=== PATIENT | female | born 1930 | race Caucasian/White ===

== ENCOUNTER 2016-11-17 14:05 | Emergency (ER) | payer MEDICARE, BC ==
--- NOTE | 2016-11-17 15:10 | ERNOTE ---
Lower Extremity HPI - Narrative Date of Service: 11/17/16 - General Lower Extremities Pain: other: right - calf Time Seen by Provider: 11/17/16 14:48 Source: patient Exam Limitations: no limitations - Immun/Allergies/Home Medications Immunizations: IMMUNIZATION HX History of Influenza Vaccine Yes Hx Pneumococcal Vaccination Yes Allergies/Adverse Reactions: Allergies Allergy/AdvReac Type Severity Reaction Status Date / Time Sulfa (Sulfonamide Allergy Verified 11/17/16 14:19 Antibiotics) Home Medications: HOME MEDICATIONS Ca/D3/Mag Ox/Zinc/Commercial Loan Specialist/Yohan/Bor [Calcium 600-D3 Plus Caplet] 1 each PO DAILY 09/24 [Last Taken 06/02/16 08:00] Cholecalciferol (Vitamin D3) [Vitamin D3] 2,000 unit PO DAILY 12/21/13 [Last Taken 06/02/16 08:00] Citalopram Hydrobromide [Citalopram HBr] 40 mg PO DAILY 12/21/13 [Last Taken 08:00] Ferrous Sulfate [Iron] 325 mg PO DAILY 12/21/13 [Last Taken 06/02/16 08:00] clonazePAM [Klonopin] 1 mg PO HS 12/21/13 [Last Taken 06/02/16 21:00] Multivitamin [One Daily Essential] 1 each PO DAILY 06/02/16 [Last Taken Unknown] Ropinirole HCl [Requip] 2 mg PO DAILY 06/02/16 [Last Taken 06/01/16 19:00] Acetaminophen [Tylenol] 650 mg PO QID PRN #0 tablet 06/06/16 [Last Taken Unknown ] Cholestyramine/Aspartame [Questran Light Packet] 4 gm PO QID #120 packet [Last Taken Unknown] Psyllium Husk (with Sugar) [Metamucil] 1 each PO QID #120 packet 06/06/16 [Last Taken Unknown] Warfarin Sodium [Coumadin] 3 mg PO DAILY@1700 #30 tablet 06/06/16 [Last Taken Unknown] Amoxicillin Trihydrate [Amoxil] 500 mg PO Q12H 11/17/16 [Last Taken Unknown] Carvedilol [Coreg] 3.125 mg PO DAILY 11/17/16 [Last Taken Unknown] Enalapril Maleate [Vasotec] 2.5 mg PO DAILY 11/17/16 [Last Taken Unknown] Furosemide [Lasix] 20 mg PO DAILY 11/17/16 [Last Taken Unknown] Oxybutynin Chloride [Ditropan Xl] 5 mg PO DAILY 11/17/16 [Last Taken Unknown] - History of Present Illness Narrative: complaining of pain and swelling in the right calf for the last week. Denies any injury, denies any discomfort with exertion. Has AF and is on warfarin. No rash. Wears ERICK hose daily. No symptoms on the left. No SOB or cough. Date (Duration): 11/10/16 Occurred: last week Method of Injury: Reports: no apparent injury Loss of Consciousness: Reports: no loss of consciousness Other Injuries: Reports: none Prior Treament: Denies: recently seen, currently on antibiotics Review of Systems - Review of Systems Constitutional: Present: no symptoms reported. Absent: fever, chills, diaphoresis, weakness Respiratory: Absent: shortness of breath, cough, wheezing Cardiology: Present: other - chronic AF. Absent: chest pain, palpitations Gastrointestinal/Abdominal: Absent: nausea, vomiting Musculoskeletal: Present: back pain - over left SI region Neurological: Absent: anxiety, weakness Psych: Present: no symptoms reported - Patient's Past Medical History Patient History - Medical: Depression, Other Patient History - Cardiac/Respiratory: Atrial Fibrillation Patient History - Cancer: No Hx of Cancer Patient History - Surgical Procedures: Appendectomy, Hysterectomy, Other Patient History - Other: None - Family History Mother Family History - Medical: , No pertinent hx Family History - Cardiac/Respiratory: No pertinent hx Father Family History - Medical: , No pertinent hx Family History - Cardiac/Respiratory: No pertinent hx - Social History Living Situations: home Psych History: Hx of Anxiety - Immunizations Hx Pneumococcal Vaccination: Yes History of Influenza Vaccine: Yes Physical Exam - Physical Exam General Appearance: Present: wd/wn, alert, no apparent distress Neck: Present: normal inspection Respiratory: Present: no respiratory distress, normal breath sounds, lungs clear Cardiovascular/Chest: Present: no murmur, normal peripheral pulses, irregularly irregular Back Exam: Present: decreased range of motion, other - tender over L SI. Myelogelosis. No midline tenderness. Extremity Exam: Present: extremity edema - very minimal, symmetrical, other - mild tenderness right popliteal fossa, no bulge or mass appreciated. Absent: calf tenderness, joint redness, joint swelling ED Progress - Results and Orders Patient's Lab Results:: I have reviewed the patient's lab results. - Vital Signs Patient's Vital Signs:: I have reviewed the patient's vital signs. Vital Signs: Vital Signs 11/17/16 14:15 Temperature 36.8 C Pulse Rate 85 Respiratory 12 Rate Blood Pressure 126/74 O2 Sat by Pulse 98 Oximetry - CT/Ultrasound CT/Ultrasound Narrative: US negative for DVT. Lechuga's cyst. Mass ? muscular tumor or hematoma. - Progress/Reassessment Chief Complaint: Lower Extremity Pain/ Injury Plan - Plan Plan: Home. Skip coumadin today then resume at the regular dosage. Get your INR checked in [address] Pompa regarding right knee US and need for an MRI to rule out a tumor. Keep using your compression stockings. Departure Clinical Impression: Edema of right lower extremity - Departure Disposition: Home self-care Condition: Good Instructions: Edema, [id number] Additional Instructions: Skip coumadin today then resume at the regular dosage. Get your INR checked in [address] Pompa regarding right knee US and need for an MRI to rule out a tumor. Keep using your compression stockings. Referrals: Amarjit Lorenzo MD [Primary Care Provider] -
[2016-11-17 15:19] LABS: Hematocrit 37.5 % (37.0-47.0); Hemoglobin 12.3 gm/dL (12.5-16.0); Mean Cell Volume 92.8 fl (78-100); Mean Corpuscular Hemoglobin 30.4 pg (27-31); Mean Corpuscular Hgb Conc 32.8 g/dl (32-36); Mean Platelet Volume 9.4 fl (6.0-9.5); Neutrophil # 3.7 K/mm3 (1.3-6.0); Platelet Count 146 K/mm3 (150-450); Red Blood Count 4.04 M/mm3 (4.2-5.4); Red Cell Distribution Width 13.8 % (11.5-14.0); White Blood Count 5.7 K/mm3 (4.0-10.5)
[2016-11-17 15:30] LABS: Prothrombin Time (Patient) 35.8 Seconds (9.4-11.4)
[2016-11-17 15:32] LABS: Albumin * 3.4 gm/dl (3.4-5.0); Anion Gap 12.3 mmol/L (6.8-13.8); BUN/Creatinine Ratio 18.3 (9.0-21.6); Ca. Corrected For Albumin 8.9 mg/dL (8.4-10.2); Calcium * 8.7 mg/dL (7.9-10.9); Potassium 4.3 mmol/L (3.4-4.6); Total Protein 6.9 gm/dL (6.2-8.2)
[2016-11-17 15:46] LABS: INR 3.44 INR (0.90-1.10)
[2016-11-17 17:50] VITALS: BP 132/74
== END 2016-11-17 16:52 | disposition home or self-care (01) ==
LOC: ER 14:05
DX: R60.0 Localized edema (principal); I48.91 Unspecified atrial fibrillation; Z79.01 Long term (current) use of anticoagulants; F41.9 Anxiety disorder, unspecified

== ENCOUNTER 2017-10-24 15:18 | Emergency (ER) | payer MEDICARE, BC ==
--- NOTE | 2017-10-24 15:42 | ERNOTE ---
Medical Problem HPI - Narrative Date of Service: 10/24/17 - General Chief Complaint: Fall Time Seen by Provider: 10/24/17 15:30 Source: patient Exam Limitations: no limitations - Immun/Allergies/Home Medications Immunizations: IMMUNIZATION HX History of Influenza Vaccine Yes Hx Pneumococcal Vaccination Yes Allergies/Adverse Reactions: Allergies Sulfa (Sulfonamide Antibiotics) Allergy (Verified 10/24/17 15:27) Home Medications: HOME MEDICATIONS Ca/D3/Mag Ox/Zinc/Metallurgical Tester/Yohan/Bor [Calcium 600-D3 Plus Caplet] 1 each PO DAILY 09/24 [Last Taken 06/02/16 08:00] Cholecalciferol (Vitamin D3) [Vitamin D3] 2,000 unit PO DAILY 12/21/13 [Last Taken 06/02/16 08:00] Citalopram Hydrobromide [Citalopram HBr] 40 mg PO DAILY 12/21/13 [Last Taken 08:00] Ferrous Sulfate [Iron] 325 mg PO DAILY 12/21/13 [Last Taken 06/02/16 08:00] clonazePAM [Klonopin] 1 mg PO HS 12/21/13 [Last Taken 06/02/16 21:00] Multivitamin [One Daily Essential] 1 each PO DAILY 06/02/16 [Last Taken Unknown] rOPINIRole HCL [Requip] 2 mg PO DAILY 06/02/16 [Last Taken 06/01/16 19:00] Acetaminophen [Tylenol] 650 mg PO QID PRN #0 tablet 06/06/16 [Last Taken Unknown ] Cholestyramine/Aspartame [Questran Light Packet] 4 gm PO QID #120 packet [Last Taken Unknown] Psyllium Husk (with Sugar) [Metamucil] 1 each PO QID #120 packet 06/06/16 [Last Taken Unknown] Warfarin Sodium [Coumadin] 3 mg PO DAILY@1700 #30 tablet 06/06/16 [Last Taken Unknown] Carvedilol [Coreg] 3.125 mg PO DAILY 11/17/16 [Last Taken Unknown] Enalapril Maleate [Vasotec] 2.5 mg PO DAILY 11/17/16 [Last Taken Unknown] Furosemide [Lasix] 20 mg PO DAILY 11/17/16 [Last Taken Unknown] Oxybutynin Chloride [Ditropan Xl] 5 mg PO DAILY 11/17/16 [Last Taken Unknown] - History of Present History Narrative: patient got foot tangled and fell on coccyx Timing: constant Severity: moderate Modifying Factors - (Improves): Present: rest Modifying Factors - (Worsens): Present: movement Review of Systems - Narrative Narrative: no other complaint - Review of Systems Constitutional: Present: See HPI EYE: Present: no symptoms reported ENT: Present: no symptoms reported Respiratory: Present: no symptoms reported Cardiology: Present: no symptoms reported Gastrointestinal/Abdominal: Present: no symptoms reported Genitourinary: Present: no symptoms reported Musculoskeletal: Present: See HPI, joint pain, other - pain in coccyx and sacroilliac joints Neurological: Present: no symptoms reported Endocrine: Present: no symptoms reported Hematologic/Lymphatic: Present: no symptoms reported Psych: Present: no symptoms reported All Other Systems: All systems neg except as marked - Narrative Narrative: unremarkable - Patient's Past Medical History Patient History - Medical: Depression, Other Patient History - Cardiac/Respiratory: Atrial Fibrillation Patient History - Cancer: No Hx of Cancer Patient History - Surgical Procedures: Appendectomy, Hysterectomy, Other Patient History - Other: None - Family History Family History:: no untoward family reactions to anesthesia, no familial bleeding tendencies, no family history of premature - Family History Mother Family History - Medical: , No pertinent hx Family History - Cardiac/Respiratory: No pertinent hx Family History - Cancer: No pertinent family hx Father Family History - Medical: , No pertinent hx Family History - Cardiac/Respiratory: No pertinent hx Family History - Cancer: No pertinent family hx - Social History Living Situations: alf Abuse History: No History of abuse Psych History: Hx of Anxiety Does anyone smoke in the home?: No Smoking Status: Never smoker Have you smoked in the past 12 months: No Do you dip or chew tobacco: No Patient requests Smoking Cessation Consult: No Alcohol Use: none Drug Use: none - Immunizations Hx Pneumococcal Vaccination: Yes History of Influenza Vaccine: Yes Physical Exam - Physical Exam General Appearance: Present: mild distress Head Exam: Present: normal inspection, no evidence of injury Eye Exam: Normal inspection: bilateral, PERRL: bilateral, EOMI: bilateral Ears, Nose, Throat: Present: normal ENT inspection Neck: Present: normal inspection, nontender Respiratory: Present: no respiratory distress, normal breath sounds Cardiovascular/Chest: Present: regular rate, rhythm, no murmur, normal peripheral pulses Peripheral Pulses: N=norm/S=strong/W=weak/B=bound/A=absent: Carotid (R): Normal , Carotid (L): Normal, Radial (R): Normal, Radial (L): Normal, Femoral (R): Normal, Femoral (L): Normal, Dorsalis-pedis (R): Normal, Dorsalis-pedis (L): Normal Gastrointestinal/Abdominal: Present: normal bowel sounds, nontender, nondistended, soft, rebound Back Exam: Present: other - pain and tenderness over coccyx and bilateral si joints, no deformity DTR: N=norm/NB=norm/brisk/A=abs/DD=dull/dimin/HC=hyperactive: Bicep (R): Normal , Bicep (L): Normal, Tricep (R): Normal, Tricep (L): Normal, Knee (R): Normal, Knee (L): Normal, Ankle (R): Normal, Ankle (L): Normal Skin Exam: Present: normal color, warm/dry Lymphatic Exam: Present: no adenopathy ED Progress - Date and Time Seen: Date and Time: 10/24/17 16:02 patient improved, x-rays reviewed with patient, to be dismissed - Vital Signs Patient's Vital Signs:: I have reviewed the patient's vital signs. Vital Signs: Vital Signs 10/24/17 15:22 Temperature 36.7 C Pulse Rate 78 Respiratory 14 Rate Blood Pressure 137/90 O2 Sat by Pulse 99 Oximetry - X-Ray X-Ray #1 X-Ray: pelvis Interpretation: Interp. by me - no acute fractures noted - Progress/Reassessment Chief Complaint: Fall Plan - Plan Plan: to be dismissed Departure Clinical Impression: Fall as cause of accidental injury at home as place of occurrence, Contusion - Departure Disposition: [facility] Condition: Fair Instructions: Fall Prevention in the Home, [id number] Referrals: Amarjit Lorenzo MD [Primary Care Provider] -
[2017-10-24 16:12] VITALS: BP 122/86
== END 2017-10-24 16:10 | disposition home or self-care (01) ==
LOC: ER 15:18
DX: I48.91 Unspecified atrial fibrillation (principal); S30.0XXA Contusion of lower back and pelvis, initial encounter; W01.0XXA Fall on same level from slipping, tripping and stumbling without subsequent striking against object, initial encounter; Y92.009 Unspecified place in unspecified non-institutional (private) residence as the place of occurrence of the external cause